=== PATIENT | female | born 1970 | race Caucasian/White ===

== ENCOUNTER → 2017-03-12 | Outpatient (CLI) | payer MEDICARE, MEDICAID ==
[~2017-03-12] MED LIST: ANAFRANIL25 MG PO; CLOZARIL100 MG PO; CLOZARIL25 MG PO; DEBROX15 ML OTIC; ENEMA READY TO133 ML R; GUAIFENESIN DM120 ML PO; HYDROCORTISONE20 GM TOP; KEPPRA500 M1 PO; KLONOPIN0.5 MG PO; LAMICTAL200 MG PO; LEVOTHROID (SY88 MCG PO; MILK OF MA400 MG/5 M PO; MIRALAX17 GM PO; MOTRIN600 MG PO; PRILOSEC20 MG PO; TYLENOL325 MG PO; VITAMIN D1000 UNIT PO; [UNRECOGNIZED DRUG - OTHER] IM
== END | disposition disaster alternative care site (69) ==
LOC: GBCOE 13:39
DX: Z12.31 Encounter for screening mammogram for malignant neoplasm of breast (principal)
CPT/HCPCS: G0202